=== PATIENT | male | born 1935 | race Caucasian/White ===

== ENCOUNTER 2018-10-02 21:16 | Inpatient (IN) | payer MEDICARE, OTHER ==
[~2018-10-02] VITALS: Ht 160 cm; Wt 64.9 kg
[~2018-10-02 21:16] MED LIST: AMLO5TAB4 PO; CARB1TAB21 MT; GLIP10TA10 PO; GLIPIZIDE; HYDR-519 PO; MECL-109 PO; METF-416 PO; TRAMADOL
[2018-10-02] MEDS ORDERED: AMLODIPINE 5MG TABLET PO ONE (23:45)
[2018-10-02] MEDS ORDERED: MORPHINE SULFATE 4 MG/ML CPJ (NOT FOR IM USE) IV ONE (23:45)
[2018-10-02 23:50] LABS: BASOPHILS % 0.4 % (0.0-2.0); HEMATOCRIT. 40.3 % (42.0-52.0); HEMOGLOBIN. 13.5 g/dL (14.0-18.0); LYMPHOCYTES % 30.3 % (20.0-50.0); MEAN CORPUSCULAR HEMOGLOBIN 28.8 pg (28.0-32.0); MEAN CORPUSCULAR VOLUME 86.4 fL (80.0-94.0); MEAN PLATELET VOLUME 9.9 fl (7.4-10.4); MONOCYTES % 8.4 % (2.0-8.0); NEUTROPHILS % 58.9 % (40.0-76.0); PLATELET 185 x1000/uL (130-400); RED BLOOD CELL COUNT 4.66 mill/uL (4.7-6.1); RED CELL DISTRIBUTION WIDTH 14.2 % (11.6-14.6)
[2018-10-02 23:55] LABS: CHLORIDE 105 mEq/L (98-107)
[2018-10-02 23:59] LABS: PARTIAL THROMBOPLASTIN TIME 28.2 sec (23.4-31.0); PROTHROMBIN TIME 10.1 sec (9.1-11.1)
[2018-10-03] MEDS ORDERED: LABETALOL HCL 20MG/4ML CARPUJECT IV SCH (02:00)
[2018-10-03] MEDS ORDERED: HYDRALAZINE 20MG/ML VIAL IV PRN (06:19)
[2018-10-03] MEDS ORDERED: METO-385 PO (08:00)
[2018-10-03] MEDS ORDERED: LOSA-20 PO (08:00)
[2018-10-03] MEDS ORDERED: GABA-529 PO (08:01)
[2018-10-03 10:20] VITALS: BP 209/73
[2018-10-03 10:31] VITALS: BP 205/73
[2018-10-03] MEDS ORDERED: HYDRALAZINE 20MG/ML VIAL IV NR (10:45)
[2018-10-03] MEDS ORDERED: ACETAMINOPHEN 650MG SUPP PR PRN (11:00)
[2018-10-03] MEDS ORDERED: IPRATROPIUM/ALBUTEROL 0.5-3(2.5)MG/3ML NEB INH PRN (11:00)
[2018-10-03] MEDS ORDERED: GUAIFENESIN 200MG/10ML SUGAR FREE UDC PO PRN (11:00)
[2018-10-03] MEDS ORDERED: HYDROCODONE/ACETAMINOPHEN 5/325MG TABLET PO PRN (11:00)
[2018-10-03] MEDS ORDERED: ONDANSETRON HCL 4MG/2ML INJ IV PRN (11:00)
[2018-10-03] MEDS ORDERED: LORAZEPAM 0.5MG TABLET PO PRN (11:00)
[2018-10-03] MEDS ORDERED: MAGNESIUM/ALUMINUM HYDROXIDE/SIMETHICONE 30ML UDC PO PRN (11:00)
[2018-10-03] MEDS ORDERED: NA PHOS,M-B/NA PHOS,DI-BA ENEMA 118ML PR PRN (11:00)
[2018-10-03] MEDS ORDERED: ACETAMINOPHEN 325MG TABLET PO PRN (11:00)
[2018-10-03] MEDS ORDERED: DOCUSATE SODIUM 100MG CAPSULE PO PRN (11:00)
[2018-10-03] MEDS ORDERED: DIPHENHYDRAMINE 50MG/ML VIAL IV PRN (11:00)
[2018-10-03] MEDS ORDERED: MECLIZINE 25MG TABLET PO PRN (11:15)
[2018-10-03] MEDS ORDERED: DEXTROSE 50% WATER 50ML SYRINGE IV PRN (11:30)
[2018-10-03] MEDS: BLOOD SUGAR DIAGNOSTIC STRIP TEST SCH ×3 (11:35→20:39)
[2018-10-03] MEDS: AMLODIPINE 5MG TABLET PO SCH (11:39)
[2018-10-03] MEDS: INSULIN LISPRO 100 UNITS/ML SUBCUT SCH ×3 (11:40→22:11)
[2018-10-03] MEDS: CARBIDOPA/LEVODOPA 25/100MG TABLET PO SCH ×2 (13:17→16:20)
[2018-10-03 13:21] LABS: HEMATOCRIT 38.2 % (42.0-52.0); MEAN CORPUSCULAR HEMOGLOBIN 29.1 pg (28.0-32.0); MEAN CORPUSCULAR VOLUME 85.4 fL (80.0-94.0); PLATELET 186 x1000/uL (130-400); RED BLOOD CELL COUNT 4.47 mill/uL (4.7-6.1)
[2018-10-03] MEDS ORDERED: METOPROLOL TARTRATE 25MG TABLET PO SCH (14:00)
[2018-10-03] MEDS ORDERED: INSULIN GLARGINE UD 100 UNITS/ML SYR SUBCUT SCH (15:00)
[2018-10-03 15:54] LABS: CREATINE KINASE MB FRACTION 6.2 ng/mL (0.5-3.6)
[2018-10-03 16:00] VITALS: BP 166/55
[2018-10-03] MEDS: GABAPENTIN 100MG CAPSULE PO SCH (16:20)
[2018-10-03] MEDS: CLONIDINE 0.1MG TABLET PO PRN (16:20)
[2018-10-03] MEDS ORDERED: MEDICATION NOT ON FORMULARY EA (Metformin Hcl 1 TAB) PO SCH (17:00)
[2018-10-03 20:00] VITALS: BP_SYST 164; BP_SYST 171; BP_SYST 173; BP_DIAS 53; BP_DIAS 57; BP_DIAS 60
[2018-10-03] MEDS: METOPROLOL TARTRATE 25MG TABLET PO SCH (21:59)
[2018-10-04] VITALS (7 sets, daily range): BP systolic 152–226; BP diastolic 49–73
[2018-10-04 06:26] LABS: BASOPHILS % 0.4 % (0.0-2.0); HEMATOCRIT. 39.1 % (42.0-52.0); HEMOGLOBIN. 13.2 g/dL (14.0-18.0); LYMPHOCYTES % 28.7 % (20.0-50.0); MEAN CORPUSCULAR HEMOGLOBIN 28.9 pg (28.0-32.0); MEAN CORPUSCULAR VOLUME 85.3 fL (80.0-94.0); MEAN PLATELET VOLUME 9.9 fl (7.4-10.4); MONOCYTES % 9.3 % (2.0-8.0); NEUTROPHILS % 58.6 % (40.0-76.0); PLATELET 199 x1000/uL (130-400); RED BLOOD CELL COUNT 4.58 mill/uL (4.7-6.1); RED CELL DISTRIBUTION WIDTH 13.8 % (11.6-14.6)
[2018-10-04] MEDS: BLOOD SUGAR DIAGNOSTIC STRIP TEST SCH ×2 (06:27→12:37)
[2018-10-04] MEDS: INSULIN LISPRO 100 UNITS/ML SUBCUT SCH ×2 (06:43→12:37)
[2018-10-04 07:34] LABS: CHLORIDE 106 mEq/L (98-107)
[2018-10-04] MEDS: CLONIDINE 0.1MG TABLET PO PRN (07:36)
[2018-10-04 07:41] LABS: LDL CHOLESTEROL 41 mg/dL (5-100)
[2018-10-04 07:42] LABS: HDL CHOLESTEROL 36 mg/dL (40-59)
[2018-10-04 07:43] LABS: T4 FREE 1.22 ng/dL (0.76-1.46)
[2018-10-04] MEDS: AMLODIPINE 5MG TABLET PO SCH (08:43)
[2018-10-04] MEDS: CARBIDOPA/LEVODOPA 25/100MG TABLET PO SCH ×2 (08:43→12:37)
[2018-10-04] MEDS: GABAPENTIN 100MG CAPSULE PO SCH (08:43)
[2018-10-04] MEDS: METOPROLOL TARTRATE 25MG TABLET PO SCH (09:00)
[2018-10-04] MEDS ORDERED: INSULIN GLARGINE UD 100 UNITS/ML SYR SUBCUT SCH (10:00)
[2018-10-04] MEDS ORDERED: HYDRALAZINE 20MG/ML VIAL IV PRN (10:45)
[2018-10-04] MEDS ORDERED: HYDRALAZINE HCL 50MG TABLET PO SCH (11:00)
== END 2018-10-04 14:29 | disposition home or self-care (01) | DRG 73 ==
LOC: ER 21:16 → 8WST 21:17 → EDBEDREQTM 10-03 02:04 → EDBEDREQ 10-03 02:04 → ENRESERV 10-03 07:49
PROVIDERS: ADMIT Internal Medicine; ATTEND Internal Medicine
DX: G90.8 Other disorders of autonomic nervous system (principal); I50.43 Acute on chronic combined systolic (congestive) and diastolic (congestive) heart failure; N17.9 Acute kidney failure, unspecified; K56.7 Ileus, unspecified; I16.0 Hypertensive urgency; G20 Parkinson's disease; M47.812 Spondylosis without myelopathy or radiculopathy, cervical region; D64.9 Anemia, unspecified; M51.37 Other intervertebral disc degeneration, lumbosacral region; I11.0 Hypertensive heart disease with heart failure; E11.9 Type 2 diabetes mellitus without complications; E78.5 Hyperlipidemia, unspecified; M51.36 Other intervertebral disc degeneration, lumbar region; Z59.9 Problem related to housing and economic circumstances, unspecified; Z79.84 Long term (current) use of oral hypoglycemic drugs; Z79.899 Other long term (current) drug therapy
CPT/HCPCS: 36415; 70551; 71045; 72100; 72170; 74018; 80048; 80061; 82550; 82553; 82962; 83880; 84439; 84443; 84484; 85027; 93005; 93306; 93970; 96372; 96374; 96375; 97162; 99291; J0360; J1815; J2270; J3490

== ENCOUNTER 2019-03-21 04:50 | Emergency (ER) | payer MEDICARE, OTHER ==
[~2019-03-21] VITALS: Ht 172.7 cm; Wt 92.0 kg
[~2019-03-21 04:50] MED LIST changes: +GABA-529 PO; +LOSA-20 PO; +METO-385 PO
[2019-03-21] MEDS ORDERED: SODIUM CHLORIDE 0.9% 1,000 ML IV ONE (05:42)
[2019-03-21 06:21] LABS: BASOPHILS % 0.5 % (0.0-2.0); HEMATOCRIT. 39.1 % (42.0-52.0); HEMOGLOBIN. 13.3 g/dL (14.0-18.0); LYMPHOCYTES % 31.5 % (20.0-50.0); MEAN CORPUSCULAR HEMOGLOBIN 30.1 pg (28.0-32.0); MEAN CORPUSCULAR VOLUME 88.3 fL (80.0-94.0); MEAN PLATELET VOLUME 9.4 fl (7.4-10.4); MONOCYTES % 9.4 % (2.0-8.0); NEUTROPHILS % 55.6 % (40.0-76.0); PLATELET 183 x1000/uL (130-400); RED BLOOD CELL COUNT 4.43 mill/uL (4.7-6.1); RED CELL DISTRIBUTION WIDTH 14.6 % (11.6-14.6)
[2019-03-21] MEDS ORDERED: ASPI-1393 PO (06:30)
[2019-03-21] MEDS ORDERED: ATOR20TA65 PO (06:30)
[2019-03-21] MEDS ORDERED: CLON0.2T PO (06:30)
[2019-03-21 06:40] LABS: CLARITY URINE CLEAR (CLEAR); COLOR URINE YELLOW (YELLOW); KETONES URINE NEGATIVE (NEGATIVE); LEUKOCYTE ESTERASE URINE NEGATIVE (NEGATIVE); NITRITE URINE NEGATIVE (NEGATIVE); OCCULT BLOOD URINE NEGATIVE (NEGATIVE); PROTEIN URINE 2+ (NEGATIVE); SPECIFIC GRAVITY URINE 1.019 (1.005-1.030); UROBILINOGEN URINE 0.2 E.U./dL (0.2-1.0)
[2019-03-21] MEDS ORDERED: KETOROLAC 30MG/ML VIAL IV ONE (06:45)
[2019-03-21 06:52] LABS: CHLORIDE 106 mEq/L (98-107)
[2019-03-21] MEDS ORDERED: IOHEXOL-12MG/ML 500 ML ORAL.CONC PO ONE (06:54)
[2019-03-21] MEDS ORDERED: MORPHINE SULFATE 4 MG/ML CPJ (NOT FOR IM USE) IV ONE (08:30)
[2019-03-21 10:14] VITALS: BP 181/58
== END 2019-03-21 10:22 | disposition home or self-care (01) ==
LOC: ER 04:50
DX: K59.00 Constipation, unspecified (principal); I10 Essential (primary) hypertension; Z79.84 Long term (current) use of oral hypoglycemic drugs
CPT/HCPCS: 36415; 74176; 80053; 81003; 82962; 83690; 85025; 96361; 96374; 99284; J1885; J7030; J7517

== ENCOUNTER 2022-02-20 12:21 | Inpatient (IN) | payer MEDICARE, OTHER ==
[~2022-02-20] VITALS: Ht 154.9 cm; Wt 62.6 kg
[~2022-02-20 12:21] MED LIST changes: -AMLO5TAB4 PO; +ASPI-1497 PO; +ATOR20TA65 PO; -CARB1TAB21 MT; +CYM20 PO; -GABA-529 PO; -GLIP10TA10 PO; -GLIPIZIDE; -HYDR-519 PO; +LIDO700A30 TOP; +LINA5TAB PO; +LISI2.5T47 PO; -LOSA-20 PO; -MECL-109 PO; -METF-416 PO; -METO-385 PO; -TRAMADOL; +TRAZ-251 PO
[2022-02-20] MEDS ORDERED: ACETAMINOPHEN 325MG TABLET PO ONE (13:00)
[2022-02-20 14:58] LABS: BASOPHILS % 0.3 % (0.0-2.0); EOSINOPHILS % 0.9 % (0.0-5.0); HEMATOCRIT. 41.9 % (42.0-52.0); LYMPHOCYTES % 26.4 % (20.0-50.0); MEAN CORPUSCULAR HEMOGLOBIN 29.2 pg (28.0-32.0); MEAN CORPUSCULAR VOLUME 87.6 fL (80.0-94.0); MONOCYTES % 6.4 % (2.0-8.0); PLATELET 188 x1000/uL (130-400); RED BLOOD CELL COUNT 4.78 mill/uL (4.7-6.1); RED CELL DISTRIBUTION WIDTH 13.8 % (11.6-14.6)
[2022-02-20 15:02] LABS: CHLORIDE 101 mEq/L (98-107)
[2022-02-20 15:13] LABS: CLARITY URINE CLEAR (CLEAR); COLOR URINE YELLOW (YELLOW); KETONES URINE NEGATIVE (NEGATIVE); LEUKOCYTE ESTERASE URINE NEGATIVE (NEGATIVE); NITRITE URINE NEGATIVE (NEGATIVE); OCCULT BLOOD URINE NEGATIVE (NEGATIVE); PH URINE 5.5 (4.5-8.0); PROTEIN URINE 2+ (NEGATIVE); SPECIFIC GRAVITY URINE 1.025 (1.005-1.030); UROBILINOGEN URINE 0.2 E.U./dL (0.2-1.0)
[2022-02-20] MEDS ORDERED: HYDRALAZINE 20MG/ML VIAL IV ONE (16:00)
[2022-02-20] MEDS ORDERED: CLONIDINE 0.2MG TABLET PO NR (17:15)
[2022-02-20 21:15] VITALS: BP 111/55
[2022-02-20] MEDS ORDERED: DEXTROSE 50% WATER 50ML SYRINGE IV PRN (22:15)
[2022-02-20] MEDS: BLOOD SUGAR DIAGNOSTIC STRIP TEST SCH (22:36)
[2022-02-20] MEDS: ACETAMINOPHEN 325MG TABLET PO PRN (22:43)
[2022-02-20] MEDS: INSULIN LISPRO 100 UNITS/ML SUBCUT SCH (22:44)
[2022-02-20 23:56] VITALS: BP 101/38
[2022-02-21] MEDS ORDERED: TRAZODONE HCL 50MG TABLET PO SCH ×3 (02:30→21:00)
[2022-02-21 04:00] VITALS: BP 112/32
[2022-02-21] MEDS ORDERED: BLOOD SUGAR DIAGNOSTIC STRIP TEST SCH (07:20)
[2022-02-21] MEDS: BLOOD SUGAR DIAGNOSTIC STRIP TEST SCH ×4 (07:20→21:04)
[2022-02-21 07:30] VITALS: BP 115/50
[2022-02-21] MEDS: INSULIN LISPRO 100 UNITS/ML SUBCUT SCH ×4 (07:50→21:23)
[2022-02-21] MEDS ORDERED: INSULIN LISPRO 100 UNITS/ML SUBCUT SCH (07:50)
[2022-02-21] MEDS: DULOXETINE HCL 20MG DR CAPSULE PO SCH (08:54)
[2022-02-21] MEDS: ASPIRIN 81MG TABLET PO SCH (08:54)
[2022-02-21] MEDS: LISINOPRIL 20MG TABLET PO SCH (08:55)
[2022-02-21] MEDS: AMLODIPINE 10MG TABLET PO SCH (08:56)
[2022-02-21] MEDS ORDERED: ENOXAPARIN 30MG/0.3ML SYR SUBCUT SCH ×2 (09:00)
[2022-02-21] MEDS: INSULIN GLARGINE 100 UNITS/ML SUBCUT SCH ×2 (10:00→21:24)
[2022-02-21 11:44] VITALS: BP 112/52
[2022-02-21 16:00] VITALS: BP 158/60
[2022-02-21 16:41] LABS: BASOPHILS % 0.2 % (0.0-2.0); HEMATOCRIT. 41.3 % (42.0-52.0); HEMOGLOBIN. 13.7 g/dL (14.0-18.0); MEAN CORPUSCULAR HEMOGLOBIN 28.9 pg (28.0-32.0); MEAN CORPUSCULAR VOLUME 87.4 fL (80.0-94.0); MEAN PLATELET VOLUME 10.3 fl (7.4-10.4); MONOCYTES % 7.4 % (2.0-8.0); NEUTROPHILS % 61.4 % (40.0-76.0); PLATELET 186 x1000/uL (130-400); RED BLOOD CELL COUNT 4.72 mill/uL (4.7-6.1); RED CELL DISTRIBUTION WIDTH 14.1 % (11.6-14.6)
[2022-02-21 20:00] VITALS: BP 168/52
[2022-02-21] MEDS: ATORVASTATIN CALCIUM 40MG TABLET PO SCH (21:21)
[2022-02-21] MEDS: ACETAMINOPHEN 325MG TABLET PO PRN (21:22)
[2022-02-21] MEDS: TRAZODONE HCL 50MG TABLET PO SCH (21:22)
[2022-02-22] VITALS: BP 128/36
[2022-02-22 03:46] VITALS: BP 127/47
[2022-02-22] MEDS: ACETAMINOPHEN 325MG TABLET PO PRN ×2 (03:52→17:34)
[2022-02-22] MEDS: SODIUM CHLORIDE 0.9% 1,000 ML IV SCH ×3 (05:30→23:05)
[2022-02-22] MEDS: INSULIN LISPRO 100 UNITS/ML SUBCUT SCH ×4 (07:29→21:41)
[2022-02-22] MEDS: BLOOD SUGAR DIAGNOSTIC STRIP TEST SCH ×4 (07:29→21:00)
[2022-02-22 08:00] VITALS: BP 168/51
[2022-02-22] MEDS: ASPIRIN 81MG TABLET PO SCH (09:29)
[2022-02-22] MEDS: AMLODIPINE 10MG TABLET PO SCH (09:29)
[2022-02-22] MEDS: LISINOPRIL 20MG TABLET PO SCH (09:30)
[2022-02-22] MEDS: DULOXETINE HCL 20MG DR CAPSULE PO SCH (09:30)
[2022-02-22] MEDS: INSULIN GLARGINE 100 UNITS/ML SUBCUT SCH ×2 (09:32→21:40)
[2022-02-22 11:51] VITALS: BP 168/58
[2022-02-22 13:09] LABS: BASOPHILS % 0.3 % (0.0-2.0); EOSINOPHILS % 1.7 % (0.0-5.0); HEMATOCRIT. 35.6 % (42.0-52.0); LYMPHOCYTES % 30.3 % (20.0-50.0); MEAN CORPUSCULAR HEMOGLOBIN 29.2 pg (28.0-32.0); MEAN CORPUSCULAR VOLUME 86.7 fL (80.0-94.0); MEAN PLATELET VOLUME 10.4 fl (7.4-10.4); MONOCYTES % 8.1 % (2.0-8.0); NEUTROPHILS % 59.6 % (40.0-76.0); PLATELET 154 x1000/uL (130-400); RED BLOOD CELL COUNT 4.11 mill/uL (4.7-6.1); RED CELL DISTRIBUTION WIDTH 13.9 % (11.6-14.6)
[2022-02-22] MEDS: HYDRALAZINE 20MG/ML VIAL IV PRN (13:44)
[2022-02-22 15:55] VITALS: BP 142/61
[2022-02-22 20:00] VITALS: BP 130/49
[2022-02-22] MEDS: ATORVASTATIN CALCIUM 40MG TABLET PO SCH (21:41)
[2022-02-22] MEDS: TRAZODONE HCL 50MG TABLET PO SCH (21:41)
[2022-02-22] MEDS: HYDRALAZINE HCL 50MG TABLET PO SCH (21:42)
[2022-02-23] VITALS: BP 113/51
[2022-02-23 03:44] VITALS: BP 120/49
[2022-02-23] MEDS: BLOOD SUGAR DIAGNOSTIC STRIP TEST SCH ×4 (06:30→21:00)
[2022-02-23] MEDS: INSULIN LISPRO 100 UNITS/ML SUBCUT SCH ×4 (07:55→21:00)
[2022-02-23 07:59] VITALS: BP 153/57
[2022-02-23] MEDS: HYDRALAZINE HCL 50MG TABLET PO SCH ×2 (08:39→21:00)
[2022-02-23] MEDS: ASPIRIN 81MG TABLET PO SCH (08:40)
[2022-02-23] MEDS: DULOXETINE HCL 20MG DR CAPSULE PO SCH (08:40)
[2022-02-23] MEDS: LISINOPRIL 20MG TABLET PO SCH ×2 (08:40→21:00)
[2022-02-23] MEDS ORDERED: AMLODIPINE 5MG TABLET PO SCH (09:00)
[2022-02-23] MEDS: INSULIN GLARGINE 100 UNITS/ML SUBCUT SCH ×2 (10:30→22:00)
[2022-02-23 12:00] VITALS: BP 168/59
[2022-02-23] MEDS ORDERED: LISI20TA31 PO (12:38)
[2022-02-23] MEDS ORDERED: LANTUSUD SUBCUT (12:38)
[2022-02-23] MEDS ORDERED: HYDR-4135 PO (12:38)
[2022-02-23] MEDS: SODIUM CHLORIDE 0.9% 1,000 ML IV SCH (13:34)
[2022-02-23 16:00] VITALS: BP 170/52
[2022-02-23] MEDS: HYDRALAZINE 20MG/ML VIAL IV PRN (18:26)
[2022-02-23 20:00] VITALS: BP 130/48
[2022-02-23] MEDS: ATORVASTATIN CALCIUM 40MG TABLET PO SCH (22:23)
[2022-02-23] MEDS: TRAZODONE HCL 50MG TABLET PO SCH (22:23)
[2022-02-24] VITALS: BP 134/47
[2022-02-24 04:00] VITALS: BP 113/59
[2022-02-24] MEDS: BLOOD SUGAR DIAGNOSTIC STRIP TEST SCH ×4 (05:20→21:06)
[2022-02-24] MEDS: INSULIN LISPRO 100 UNITS/ML SUBCUT SCH ×4 (07:50→21:05)
[2022-02-24 08:06] VITALS: BP 160/69
[2022-02-24] MEDS: ASPIRIN 81MG TABLET PO SCH (08:58)
[2022-02-24] MEDS: DULOXETINE HCL 20MG DR CAPSULE PO SCH (08:58)
[2022-02-24] MEDS: HYDRALAZINE HCL 50MG TABLET PO SCH ×2 (08:59→21:03)
[2022-02-24] MEDS: LISINOPRIL 20MG TABLET PO SCH ×2 (08:59→21:01)
[2022-02-24 12:00] VITALS: BP 155/60
[2022-02-24] MEDS: INSULIN GLARGINE 100 UNITS/ML SUBCUT SCH ×2 (13:14→21:05)
[2022-02-24 16:00] VITALS: BP 159/70
[2022-02-24] MEDS: HYDRALAZINE 20MG/ML VIAL IV PRN (19:07)
[2022-02-24 20:00] VITALS: BP 156/61
[2022-02-24] MEDS: TRAZODONE HCL 50MG TABLET PO SCH (21:02)
[2022-02-24] MEDS: ATORVASTATIN CALCIUM 40MG TABLET PO SCH (21:02)
[2022-02-25] VITALS: BP 131/51
[2022-02-25 04:00] VITALS: BP 194/76
[2022-02-25] MEDS: BLOOD SUGAR DIAGNOSTIC STRIP TEST SCH ×4 (06:20→20:51)
[2022-02-25] MEDS: HYDRALAZINE 20MG/ML VIAL IV PRN (06:21)
[2022-02-25] MEDS: INSULIN LISPRO 100 UNITS/ML SUBCUT SCH ×4 (07:50→20:50)
[2022-02-25 08:00] VITALS: BP 158/78
[2022-02-25] MEDS: DULOXETINE HCL 20MG DR CAPSULE PO SCH (09:41)
[2022-02-25] MEDS: LISINOPRIL 20MG TABLET PO SCH ×2 (09:42→20:45)
[2022-02-25] MEDS: HYDRALAZINE HCL 50MG TABLET PO SCH ×2 (09:42→20:45)
[2022-02-25] MEDS: ASPIRIN 81MG TABLET PO SCH (09:42)
[2022-02-25] MEDS: INSULIN GLARGINE 100 UNITS/ML SUBCUT SCH ×2 (09:43→20:54)
[2022-02-25 12:00] VITALS: BP 134/81
[2022-02-25 16:00] VITALS: BP 161/63
[2022-02-25 20:00] VITALS: BP 186/67
[2022-02-25] MEDS: TRAZODONE HCL 50MG TABLET PO SCH (20:45)
[2022-02-25] MEDS: ATORVASTATIN CALCIUM 40MG TABLET PO SCH (20:45)
[2022-02-26] VITALS (7 sets, daily range): BP systolic 100–183; BP diastolic 51–74
[2022-02-26] MEDS: BLOOD SUGAR DIAGNOSTIC STRIP TEST SCH ×4 (06:21→21:50)
[2022-02-26] MEDS: HYDRALAZINE 20MG/ML VIAL IV PRN (06:25)
[2022-02-26] MEDS: INSULIN LISPRO 100 UNITS/ML SUBCUT SCH ×4 (07:50→21:52)
[2022-02-26] MEDS: ASPIRIN 81MG TABLET PO SCH (09:13)
[2022-02-26] MEDS: HYDRALAZINE HCL 50MG TABLET PO SCH (09:13)
[2022-02-26] MEDS: DULOXETINE HCL 20MG DR CAPSULE PO SCH (09:13)
[2022-02-26] MEDS: LISINOPRIL 20MG TABLET PO SCH ×2 (09:13→21:50)
[2022-02-26] MEDS: INSULIN GLARGINE 100 UNITS/ML SUBCUT SCH ×2 (12:23→21:51)
[2022-02-26] MEDS: ATORVASTATIN CALCIUM 40MG TABLET PO SCH (21:50)
[2022-02-26] MEDS: HYDRALAZINE HCL 100MG TABLET PO SCH (21:51)
[2022-02-26] MEDS: TRAZODONE HCL 50MG TABLET PO SCH (21:51)
[2022-02-27 04:00] VITALS: BP 95/50
[2022-02-27] MEDS: BLOOD SUGAR DIAGNOSTIC STRIP TEST SCH ×4 (06:35→21:32)
[2022-02-27] MEDS: INSULIN LISPRO 100 UNITS/ML SUBCUT SCH ×4 (07:50→21:33)
[2022-02-27 08:00] VITALS: BP 145/58
[2022-02-27] MEDS: HYDRALAZINE HCL 100MG TABLET PO SCH ×2 (08:59→20:26)
[2022-02-27] MEDS: DULOXETINE HCL 20MG DR CAPSULE PO SCH (08:59)
[2022-02-27] MEDS: ASPIRIN 81MG TABLET PO SCH (08:59)
[2022-02-27] MEDS: LISINOPRIL 20MG TABLET PO SCH ×2 (09:00→21:33)
[2022-02-27] MEDS: INSULIN GLARGINE 100 UNITS/ML SUBCUT SCH ×2 (11:21→21:34)
[2022-02-27 12:00] VITALS: BP 135/61
[2022-02-27 16:00] VITALS: BP 142/67
[2022-02-27 19:36] VITALS: BP 135/61
[2022-02-27] MEDS: ATORVASTATIN CALCIUM 40MG TABLET PO SCH (21:32)
[2022-02-27] MEDS: TRAZODONE HCL 50MG TABLET PO SCH (21:33)
[2022-02-28] VITALS: BP 103/47
[2022-02-28 04:00] VITALS: BP 117/47
[2022-02-28] MEDS: BLOOD SUGAR DIAGNOSTIC STRIP TEST SCH ×3 (06:14→17:33)
[2022-02-28] MEDS: INSULIN LISPRO 100 UNITS/ML SUBCUT SCH ×3 (07:50→17:38)
[2022-02-28 08:00] VITALS: BP 150/56
[2022-02-28] MEDS: DULOXETINE HCL 20MG DR CAPSULE PO SCH (08:56)
[2022-02-28] MEDS: ASPIRIN 81MG TABLET PO SCH (08:56)
[2022-02-28] MEDS: HYDRALAZINE HCL 100MG TABLET PO SCH (08:57)
[2022-02-28] MEDS: LISINOPRIL 20MG TABLET PO SCH (08:57)
[2022-02-28] MEDS: INSULIN GLARGINE 100 UNITS/ML SUBCUT SCH (10:52)
[2022-02-28 12:00] VITALS: BP 150/57
[2022-02-28 16:00] VITALS: BP 133/60
[2022-02-28 16:36] VITALS: BP 166/62
== END 2022-02-28 18:10 | disposition home or self-care (01) | DRG 73 ==
LOC: ER 13:23 → 6WST 15:21 → EDBEDREQSVC 17:09 → ENRESERV 20:47
PROVIDERS: ADMIT Internal Medicine; ATTEND Internal Medicine
DX: E11.41 Type 2 diabetes mellitus with diabetic mononeuropathy (principal); N17.0 Acute kidney failure with tubular necrosis; M25.552 Pain in left hip; R00.1 Bradycardia, unspecified; M54.50 Low back pain, unspecified; Z20.822 Contact with and (suspected) exposure to COVID-19; E78.5 Hyperlipidemia, unspecified; M85.80 Other specified disorders of bone density and structure, unspecified site; R29.6 Repeated falls; R26.81 Unsteadiness on feet; W18.2XXA Fall in (into) shower or empty bathtub, initial encounter; G20 Parkinson's disease; E11.65 Type 2 diabetes mellitus with hyperglycemia; I11.9 Hypertensive heart disease without heart failure; Y92.59 Other trade areas as the place of occurrence of the external cause; Y99.8 Other external cause status; Z86.73 Personal history of transient ischemic attack (TIA), and cerebral infarction without residual deficits; Y93.E1 Activity, personal bathing and showering; Z79.4 Long term (current) use of insulin; Z91.81 History of falling; Z91.014 Allergy to mammalian meats; Z79.82 Long term (current) use of aspirin
CPT/HCPCS: 36415; 72131; 73502; 80048; 80053; 80061; 81003; 82962; 83036; 84145; 84443; 85025; 87426; 93005; 93306; 97162; 97164; 97166; 97530; 99285; J0360; J1815; J7030